=== PATIENT | male | born 1945 | race Caucasian/White ===

== ENCOUNTER → 2023-11-03 | Outpatient (CLI) | payer OTHER, SELFPAY ==
--- NOTE | 2023-11-03 12:46 | ECHOD_ITS ---
Version 2 Reason For Study: CAD/ASHD Procedure This was a 2D Doppler, Color Flow transthoracic echocardiogram. Exam performed in department. Left Ventricle Normal LV size. The estimated ejection fraction is 65 %. Unable to assess diastolic dysfunction. No regional wall motion abnormalities noted. Right Ventricle Normal RV size. Normal systolic function. Atria The left atrium is mildly enlarged. Normal right atrium. No doppler evidence for ASD. Mitral Valve There is no mitral valve stenosis. Trivial mitral valve insufficiency. Tricuspid Valve There is no tricuspid stenosis. Trivial tricuspid valve insufficiency. Pulmonary artery systolic pressure is 40-45 mmHg. Aortic Valve Trisinus/trileaflet aortic valve. There is no aortic stenosis. No aortic valve insufficiency. Pulmonic Valve There is no pulmonic valvular stenosis. Trivial pulmonic valve insufficiency. Great Vessels Normal aortic root. Pericardium/Pleural No pericardial effusion. MMode/2D Measurements & Calculations LVIDd: 4.7 cm IVSd: 1.0 cm LVOT diam: 2.2 cm LVIDs: 2.9 cm LVPWd: 0.99 cm LVOT area: 3.9 cm2 RVDd: 4.0 cm FS: 37.4 % Ao root diam: 3.3 cm LVAd ap4: 27.5 cm2 LVAd ap2: 28.3 cm2 LVLd ap4: 7.4 cm LVLd ap2: 7.8 cm EDV(MOD-sp4): 85.8 ml EDV(MOD-sp2): 87.2 ml EDV(sp4-el): 86.3 ml EDV(sp2-el): 87.5 ml LVAs ap4: 15.3 cm2 LVAs ap2: 14.5 cm2 LVLs ap4: 6.6 cm LVLs ap2: 6.1 cm ESV(MOD-sp4): 31.0 ml ESV(MOD-sp2): 29.5 ml ESV(sp4-el): 30.0 ml ESV(sp2-el): 28.9 ml EF(MOD-sp4): 63.9 % EF(MOD-sp2): 66.2 % EF(sp4-el): 65.2 % SV(MOD-sp4): 54.8 ml SV(MOD-sp2): 57.7 ml SV(sp4-el): 56.3 ml Time Measurements MV dec time: 0.14 sec Doppler Measurements & Calculations MV E max marie: 92.3 cm/sec MV V2 max: 105.6 cm/sec MV P1/2t max marie: 108.7 cm/sec MV A max marie: 92.8 cm/sec MV max P.5 mmHg MV P1/2t: 50.6 msec MV E/A: 1.00 MV V2 mean: 47.3 cm/sec MV dec slope: 628.4 cm/sec2 MV mean P.2 mmHg MV V2 VTI: 33.0 cm MVA(P1/2t): 4.3 cm2 MVA(VTI): 3.3 cm2 Ao V2 max: 168.2 cm/sec LV V1 max: 103.6 cm/sec SV(LVOT): 108.8 ml Ao max P.3 mmHg LV V1 max P.3 mmHg Ao V2 mean: 120.6 cm/sec LV V1 mean P.4 mmHg Ao mean P.5 mmHg LV V1 mean: 73.2 cm/sec Ao V2 VTI: 43.0 cm LV V1 VTI: 27.8 cm AV (velocity ratio): 0.65 DAT(I,D): 2.5 cm2 DAT(V,D): 2.4 cm2 PA V2 max: 115.3 cm/sec TR max marie: 305.9 cm/sec PA max PG (full): 2.1 mmHg TR max P.4 mmHg ECHO/Echo Complete Interpretation Summary The estimated ejection fraction is 65 %. The left atrium is mildly enlarged. Trivial mitral valve insufficiency. Unable to assess diastolic dysfunction. Ordering Physician: Rylan Mendez Referring Physician: DOMINIQUE PCP Performed By: Coleen Rutherford RDCS, RVT
== END | disposition home or self-care (01) ==
LOC: CVS 12:44
PROVIDERS: Referring Provider Chiropractor; Visit Provider Chiropractor
DX: I25.10 Atherosclerotic heart disease of native coronary artery without angina pectoris (principal)
CPT/HCPCS: 93306